=== PATIENT | female | born 1960 | race Caucasian/White ===

== ENCOUNTER → 2019-09-20 | Outpatient (CLI) | payer SELFPAY | PROVIDERS: Family Provider Nurse Practitioner Family; Visit Provider Nurse Practitioner Family | DX: N64.89 Other specified disorders of breast (principal); R92.8 Other abnormal and inconclusive findings on diagnostic imaging of breast | CPT/HCPCS: 76642; 77065 ==

== ENCOUNTER 2019-10-18 10:18 | Outpatient (CLI) | payer MEDICAID, SELFPAY ==
--- NOTE | 2019-10-18 10:26 | US_ITS ---
WS: [id number] Abdomen ultrasound, 10/18/2019 Clinical Data: ABDOMINAL PAIN Comparison: None. Findings: The pancreas shows no cyst, pseudocyst or evidence of pancreatitis. The liver shows no cysts, masses or dilated intrahepatic ducts. The gallbladder has no stones or sludge. The wall measures 0.2 mm with no pericholecystic fluid. The common bile duct is 0.3 mm and no intraductal abnormalities are noted. The right kidney is 8.9 cm. No cysts, masses or hydronephrosis is seen. The left kidney is 8.6 cm. No cysts, masses or hydronephrosis is seen. The abdominal aorta is not dilated and the inferior vena cava has normal flow. No vascular abnormalit ies are seen. The spleen measures 9.1 cm and there are no intrasplenic masses are capsular abnormalities. US/US abdomen complete* [id number] Impression: Negative abdomen ultrasound.
== END 2019-10-18 10:19 | disposition home or self-care (01) ==
LOC: US 10:21
PROVIDERS: Family Provider Nurse Practitioner Family; PCP Nurse Practitioner Family; Visit Provider Nurse Practitioner Family
DX: R10.9 Unspecified abdominal pain (principal)
CPT/HCPCS: 76700

== ENCOUNTER 2019-11-07 12:08 | Outpatient (CLI) | payer MEDICAID, SELFPAY ==
--- NOTE | 2019-11-07 12:12 | US_ITS ---
WS: [id number] ULTRASOUND LEFT BREAST, limited HISTORY: LT BREAST MASS COMPARISON: 09/20/2019 TECHNIQUE: 2-D and Doppler. Previously described mass in the LEFT breast at 1:00 is very benign in appearance. This is very small and may have decreased in size since the prior study. No biopsy will be performed today. This has be en explained to the patient in detail. US/US breast LT limited* [id number] IMPRESSION: BI-RADS: 3-Probably Benign FOLLOW-UP: 6 Month Follow-up Recommend diagnostic LEFT mammogram in 6 months along with ultrasound.
== END 2019-11-07 12:09 | disposition home or self-care (01) ==
LOC: RAD 12:08
PROVIDERS: Family Provider Nurse Practitioner Family; PCP Nurse Practitioner Family; Visit Provider Surgery
DX: N63.21 Unspecified lump in the left breast, upper outer quadrant (principal)
CPT/HCPCS: 19083; 76642

== ENCOUNTER 2020-02-14 07:44 | Outpatient (CLI) | payer MEDICAID, SELFPAY ==
--- NOTE | 2020-02-14 07:50 | USCV_ITS ---
Marybel Jay Age: 59 Gender: F : 1960 Exam Date: 02/14/2020 08:04 Ordering Phys: Valentina Santa Technologist: Ramesh Jenkins Exam Location: [facility] – [place] Indication: DYSPNEA ON EXERTION BP: 125 / 75 HR: 76 Rhythm: Sinus Technical Quality: Fair MEASUREMENTS (Male / Female) Normal Values 2D ECHO LV Diastolic Diameter PLAX 4.0 cm 4.2 - 5.9 / 3.9 - 5.3 cm LV Systolic Diameter PLAX 3.4 cm IVS Diastolic Thickness 1.0 cm 0.6 - 1.0 / 0.6 - 0.9 cm IVS Systolic Thickness 1.4 cm LVPW Diastolic Thickness 0.9 cm 0.6 - 1.0 / 0.6 - 0.9 cm LVPW Systolic Thickness 1.2 cm LVOT Diameter 2.0 cm LV Ejection Fraction 2D Teich 30.3 % LV Ejection Fraction MOD 2C 67.9 % LV Ejection Fraction 2C AL 68.4 % LA Diameter 4.1 cm LA Width 3.8 cm LA Height 3.6 cm RA Width 3.2 cm RA Height 4.3 cm Aorta at Sinotubular Diameter 2.1 cm M-MODE LV Diastolic Diameter MM 4.7 cm 4.2 - 5.9 / 3.9 - 5.3 cm LV Systolic Diameter MM 2.8 cm LV Ejection Fraction MM Teich 69.9 % IVS Diastolic Thickness MM 1.1 cm 0.6 - 1.0 / 0.6 - 0.9 cm IVS Systolic Thickness MM 1.7 cm LVPW Diastolic Thickness MM 1.2 cm 0.6 - 1.0 / 0.6 - 0.9 cm LVPW Systolic Thickness MM 1.7 cm RV Diastolic Diameter MM 1.3 cm Aortic Annulus Diameter 3.2 cm LA Ao Ratio MM 1.3 MV E Point Septal Separation 1.1 cm DOPPLER AV Peak Velocity 106.0 cm/s LVOT Peak Velocity 88.0 cm/s AV Area Cont Eq vti 3.1 cm squared AV Area Cont Eq pk 2.6 cm squared MV Area PHT 5.0 cm squared Mitral E to A Ratio 1.1 MV E' Velocity 9.0 cm/s Mitral E to MV E' Ratio 5.4 Mitral E to LV E' Lateral Ratio 7.1 Mitral E to LV E' Septal Ratio 4.4 TR Peak Velocity 220.0 cm/s TR Peak Gradient 19.4 mmHg TV Peak E Velocity 74.0 cm/s Right Atrial Pressure 3.0 mmHg Pulmonary Artery Systolic Pressu 22.4 mmHg PV Peak Velocity 55.0 cm/s FINDINGS Left Ventricle Normal left ventricular size, systolic function and wall thickness, with no regional wall motion abnormalities. Left ventricular ejection fraction is estimated at 60 %. Normal diastolic function. Right Ventricle Normal right ventricular size and systolic function, RVSP 22.4 mmHg. Right Atrium Normal right atrial size. Right atrial pressure estimated at 3 mm Hg. Left Atrium Mildly increased left atrial size. Mitral Valve Mildly thickened mitral valve. Mild mitral valve regurgitation. Aortic Valve Aortic valve not well visualized. No aortic valve stenosis. No aortic valve regurgitation. Tricuspid Valve Structurally normal tricuspid valve. Trace tricuspid valve regurgitation. Pulmonic Valve Pulmonic valve not well visualized. Pericardium No pericardial effusion. Aorta Normal aorta. CONCLUSIONS 1. Normal left ventricular size, systolic function and wall thickness, with no regional wall motion abnormalities. Left ventricular ejection fraction is estimated at 60 %. Normal diastolic function. 2. Normal right ventricular size and systolic function, RVSP 22.4 mmHg. 3. Mild mitral valve regurgitation. 4. No prior similar studies to compare. Selene Neff MD (Electronically Signed) Final Date: 14 Feb 2020 15:02 S
== END 2020-02-14 07:45 | disposition home or self-care (01) ==
LOC: RAD 07:45
PROVIDERS: PCP Nurse Practitioner Family; Visit Provider Nurse Practitioner Family
DX: R06.09 Other forms of dyspnea (principal); I34.0 Nonrheumatic mitral (valve) insufficiency
CPT/HCPCS: 93306

== ENCOUNTER 2020-05-21 10:26 | Outpatient (CLI) | payer MEDICAID, SELFPAY ==
--- NOTE | 2020-05-21 10:32 | MM_ITS ---
WS: [id number] DIAGNOSTIC LEFT DIGITAL MAMMOGRAM WITH CAD LEFT breast ultrasound, limited HISTORY: Follow-up LEFT breast mass. COMPARISON: 08/26/2019, 09/20/2019, 04/01/2018 and 11/07/2019 Technique: CC, MLO and ML views. Spot compression LEFT MLO and cc. Breast composition: The breasts are heterogeneously dense, which may obscure small masses. No persist ent asymmetry or nodule. No distortion. LEFT breast ultrasound, limited. Again noted is a very hypoechoic posterior ovoid nodule measuring 3 x 1 x 5 mm at 1 o'clock. This is very benign in appearance and may be normal fibroglandular tissue. There is no shadowing or increased vascularity. MM/[place] [id number] IMPRESSION: BI-RADS: 2-Benign FOLLOW UP: 6 Month Follow-up Patient to return to annual screening mammography in August 2020.
== END 2020-05-21 10:27 | disposition home or self-care (01) ==
LOC: RADSHAW 10:27
PROVIDERS: PCP Nurse Practitioner Family; Visit Provider Nurse Practitioner Family
DX: R92.2 Inconclusive mammogram (principal); N63.21 Unspecified lump in the left breast, upper outer quadrant
CPT/HCPCS: 76642; 77065

== ENCOUNTER 2020-06-27 08:46 | Outpatient (CLI) | payer MEDICAID, SELFPAY ==
--- NOTE | 2020-06-27 09:20 | MR_ITS ---
WS: [id number] MRI RIGHT KNEE HISTORY: RIGHT KNEE PAIN COMPARISON: None available. Anterior cruciate ligament: Intact. Posterior cruciate ligament: Intact. Medial collateral ligament: Intact. Posterior lateral corner structures: Intact. Medial menisci: Linear increased signal through the meniscus does not contact an articular surface. Lateral meniscus: Intact. Normal signal, size and shape. Extensor mechanism: Distal quadriceps tendon and patellar tendons are intact. Fluid and soft tissue: Small suprapatellar joint effusion. There is small amount of fluid in the dae on of Garber's cyst. Abnormal signal within the medial head of the gastrocnemius muscle, abnormal signal is just medial to the popliteal artery in the expected location of the tibial nerve. There is mixed signal but predomi nantly increased T2 signal extending over a length of 3.7 cm. Serpiginous area of decreased signal ce ntrally. Osseous and articular structures: Patellofemoral compartment: Mild chondromalacia in the medial patellar facet. Subchondral cystic ansari ges at the patellar eminence. Medial compartment: Negative. Lateral compartment: Negative. MR/MR knee RT wo con* [id number] IMPRESSION: 1. No fracture or meniscal tear. 2. Small suprapatellar joint effusion. 3. Mixed signal in the medial head of the gastrocnemius muscle is most likely partial muscle tear with associated hemorrhage extending over length of 3.7 cm. Tibial nerve involvement is not excluded. 4. Small Garber's cyst.
== END 2020-06-27 08:47 | disposition home or self-care (01) ==
LOC: RADWPI 08:48
PROVIDERS: PCP Nurse Practitioner Family; Visit Provider Nurse Practitioner Family
DX: M25.461 Effusion, right knee (principal); M71.21 Synovial cyst of popliteal space [Baker], right knee
CPT/HCPCS: 73721

== ENCOUNTER 2020-11-02 12:17 | Outpatient (CLI) | payer MEDICAID, SELFPAY ==
--- NOTE | 2020-11-02 12:32 | MM_ITS ---
WS: [id number] BILATERAL DIGITAL DIAGNOSTIC MAMMOGRAM MAMMOGRAPHY WITH CAD CLINICAL INFORMATION: BREAST LUMP LT HISTORY: Six-month follow-up. Left breast lump. COMPARISON: May 21, 2020 TECHNIQUE: Bilateral CC, MLO, and ML views. FINDINGS: The breasts are composed of heterogeneous fibroglandular density, which can limit the detection of sm all underlying mass lesions. Vascular calcifications. Punctate and lucent centered calcifications. Pa lpable marker left breast. No underlying mammographic abnormalities. Ultrasound is pending. Right breast is unchanged and unremarkable. ULTRASOUND BREAST LEFT TECHNIQUE: Ultrasound left breast focused area of concern. CLINICAL INFORMATION: BREAST LUMP LT COMPARISON: None. FINDINGS: Ultrasound left breast at the 1:00 position. Tiny cystic lesion at the 1:00 position 2 cm from the ni pple measuring 4.3 x 1.6 x 4.0 mm. This is unchanged from previous and has a benign appearance. Recom mend return to annual screening mammography. MM/[place] [id number] IMPRESSION: BI-RADS: 2-Benign FOLLOW UP: 1 Year Follow-up Recommend return to annual screening mammography.
== END 2020-11-02 12:18 | disposition home or self-care (01) ==
LOC: RADSHAW 12:18
PROVIDERS: PCP Nurse Practitioner Family; Visit Provider Nurse Practitioner Family
DX: N63.21 Unspecified lump in the left breast, upper outer quadrant (principal)
CPT/HCPCS: 76642; 77066

== ENCOUNTER → 2021-01-15 15:52 | Outpatient (BNVA) | payer MEDICAID, SELFPAY | PROVIDERS: PCP Nurse Practitioner Family; Referring Provider Nurse Practitioner Family; Visit Provider Orthopaedic Surgery | DX: M54.5 Low back pain (principal) | CPT/HCPCS: 72110; 72220 ==

== ENCOUNTER 2021-01-22 16:57 | Outpatient (CLI) | payer MEDICAID, SELFPAY ==
--- NOTE | 2021-01-22 17:30 | MR_ITS ---
WS: [id number] MRI LUMBAR SPINE NONCONTRAST TECHNIQUE: Sagittal T1, T2 and STIR imaging. Axial T1 and T2 imaging. CLINICAL INFORMATION: M48.061 - Spinal stenosis, lumbar region without neurogen... COMPARISON: MRI June 2019 FINDINGS: Mild lumbar curve. No acute compression. No high-grade central canal stenosis. Incidental vertebral h emangiomas are unchanged. L1-L2: Normal. L2-L3: Normal. L3-L4: No significant disc bulging. Mild facet arthropathy. Spinal canal and foramen are patent. L4-L5: Minimal annular bulging. Mild left and no significant right foraminal narrowing. Spinal canal is patent. Moderate facet arthropathy. L5-S1: No significant disc bulging. Spinal canal is patent. Mild left foraminal narrowing. Moderate f acet arthropathy. Visualized pelvic bony structures: Normal. Paravertebral soft tissues: Normal. MR/MR lumbar spine wo con* [id number] IMPRESSION: 1. Mild lumbar curve. No acute compression. No high-grade central canal stenos is. 2. Mild left L4-5 and left L5-S1 foraminal narrowing. 3. Moderate facet arthropathy L4-L5 and L5-S1.
== END 2021-01-22 16:58 | disposition home or self-care (01) ==
LOC: RADSHAW 17:01
PROVIDERS: PCP Nurse Practitioner Family; Visit Provider Orthopaedic Surgery
DX: M48.061 Spinal stenosis, lumbar region without neurogenic claudication (principal); M47.816 Spondylosis without myelopathy or radiculopathy, lumbar region; M47.817 Spondylosis without myelopathy or radiculopathy, lumbosacral region
CPT/HCPCS: 72148

== ENCOUNTER → 2021-03-08 09:16 | Outpatient (BNVA) | payer MEDICAID, SELFPAY | PROVIDERS: PCP Nurse Practitioner Family; Visit Provider Orthopaedic Surgery | DX: Z01.818 Encounter for other preprocedural examination (principal); Z20.822 Contact with and (suspected) exposure to COVID-19 | CPT/HCPCS: 87635 ==

== ENCOUNTER 2021-03-13 11:32 | Day surgery (SDC) | payer MEDICAID, SELFPAY ==
[2021-03-12 15:41] VITALS: BMI 31.4
[2021-03-13] VITALS (12 sets, daily range): BP systolic 132–155; BP diastolic 68–78; PULSE 70–96; RESP 13–20; TEMP 36.1–36.8; O2SAT 94–97
--- NOTE | 2021-03-13 | XR_ITS ---
WS: [id number] Lumbar spine, C-arm fluoroscopy, 03/13/2021 Clinical Data: OR PICS/ DECOMPRESSION Comparison: None. Findings: Dr Gonzales decompressed a lower level of the lumbar spine. XR/XR lumbar spine 1V [id number] Impression: Decompression by Dr. Gonzales.
--- NOTE | 2021-03-13 | SCC_ITS ---
Procedure Done: L4/5 laminectomy with partial facetectomies 11.2 seconds of fluoroscopic guidance, for a cumulative dose of 3.35 mGy, was provided to Dr. Gonzales by the radiology department. C-arm images of the lumbar spine were saved for the patient's permanent record. [facility]PITALNavid
[2021-03-13] MEDS: sodium chloride 0.9% 1,000 ML 30 ML IV (13:00)
--- NOTE | 2021-03-13 13:04 | P.HP_ITS ---
Providers/Chief Complaint Primary Care Provider: Valentina Santa ROUND CUTTER OPERATOR-C Chief Complaint: [id number] lumbar decompression L4/5 History of Present Illness Marybel Jay is a 60 year old female here for evaluation of low back pain. Chief Complaint: low back pain Onset: years Duration: worse over the past two weeks due to fall Characteristics: ache constant , numbness tingling and weakness. Severity: 03/30 Location: low back Radiating symptoms: across hips, at times she has pain in her feet Aggravating factors: walking, sitting to standing position, Alleviating factors: oral pain mediation with minimal relief Neuro deficits: deniesincontinence of bowel/bladder, saddle anesthesia. Prior tx: pain management with Dr. Stephen unsure of type of injection with no relief . physical therapy with no change. Review of Systems Narrative: General ROS: negative for weight changes, fever ENT ROS: negative for nasal congestion, drainage or bleeding, sore throat, dysphagia or ear pain Eyes: PERRL Hematological and Lymphatic ROS: negative for swollen glands or abnormal bleeding Endocrine ROS: negative for polyuria/polydpsia or new changes in weight Respiratory ROS: negative for cough, shortness of breath, or wheezing Cardiovascular ROS: negative for chest pain or dyspnea on exertion Gastrointestinal ROS: negative for reflux, abdominal pain, change in bowel habits, or black or bloody stools Musculoskeletal ROS: negative for back pain, neck pain, or joint pain or swelling except for current problem Neurological ROS: negative for TIA or stoke symptoms Skin: no rashes Medications/Allergies Home Medications Medication Instructions Recorded Confirmed Last Taken Type amitriptyline 75 mg tablet 75 mg PO DAILY 01/15/21 03/13/21 03/11/21 History atorvastatin 40 mg tablet 40 mg PO DAILY 01/15/21 03/13/21 03/11/21 History duloxetine 30 mg capsule,delayed 30 mg PO DAILY 01/15/21 03/13/21 03/11/21 History release epinephrine 0.3 mg/0.3 mL 0.3 mg IM Q10M PRN 01/15/21 03/12/21 Unknown History injection, auto-injector famotidine 20 mg tablet 20 mg PO DAILY 01/15/21 03/13/21 03/11/21 History folic acid 0.8 mg capsule 0.8 mg PO DAILY 01/15/21 03/13/21 03/11/21 History gabapentin 300 mg capsule 300 mg PO TID 01/15/21 03/13/21 03/11/21 History levocetirizine 5 mg tablet 5 mg PO DAILY 01/15/21 03/13/21 03/11/21 History methocarbamol 750 mg tablet 750 mg PO TID 01/15/21 03/13/21 03/11/21 History Allergies Allergy/AdvReac Type Severity Reaction Status Date / Time No Known Allergies Allergy Verified 02/05/21 12:58 Vitals/I&O/Wt Last Vital Signs Temp 98.2 F 03/13/21 12:18 Pulse 70 03/13/21 12:18 Resp 16 03/13/21 12:18 BP 155/74 03/13/21 12:18 Pulse Ox 95 03/13/21 12:18 Weight last 48 hrs Weight 189 lb Physical Exam Narrative: EXAM NARRATIVE: CONSTITUTIONAL: The patient is a normal appearing [] in no apparent distress. GENERAL: Patient in no acute distress. CARDIAC: Regular rate and rhythm. CHEST: Normal inspiratory effort, normal respiratory rate. ABDOMEN: Soft and nontender. SKIN: Clear, warm and intact. NEURO?PSYCH: The patient is alert and oriented to person, place and time. Sensorv /SILT Motor StrengthShoulder abduction C5 5/5Wrist extension C6 5/5Elbow extension C7 5/5Hand Incinerator Attendant C8 5/5Finger abduction T15/5 Radial/ Ulnar/ Median n intact LowerSensory (SILT)Motor StrengthHin flexion L2/3Ant/inner thigh 5/5Hip adduction L2/3 5/5Knee extension L4 Lat thigh, 5/5Toe dorsiflexion L5 5/5Ankle dorsiflexion L5/ A45Xypvfds flexion S1 5/5 DTRBleeps 2+Triceps 2+Brachioradialis 2+Patellar 2+Achilles 2+ MUSCULOSKELETAL: [] UPPEREXTREMITIES: The patient had full active ROM in fingers, wrist, elbow, and shoulder. The patient demonstrated ability to fully flex/extend/abduct/adduct fingers, make ok sign, cross 2nd/3rd digits, extend 1st digit fully.. Radial pulse 2+, CR<2 seconds. LOWER EXTREMITIES: Pt has full, active ROM of toes, ankle, knee, and hip. Dorsalis pedis/posterior tibialis pulses 2+, CR<2 seconds. SPINE: Skin warm, dry, intact. A&P Assessment and plan (1) Lumbar stenosis with neurogenic claudication: L4/5 decompression Status: Acute Attestations Medical Necessity Statement*: failed conservative treatment Coding Level of Care Code Acute Swaging Machine Operator for [facility] Fwd Diagnoses Lumbar stenosis with neurogenic claudication M48.062
--- NOTE | 2021-03-13 13:06 | W.PM.OPSUD ---
Surgery/Procedure H&P Update DATE OF PROCEDURE: March 13, 2021 DATE H&P PERFORMED: 03/13/21 PREOP DIAGNOSIS: lumbar stenosis PLANNED PROCEDURE: Operation Date: 03/13/21 13:30 Proposed Procedures p [id number] lumbar decompression L4/5 m48.062(Not Applicable) - Alex Gonzales DO
--- NOTE | 2021-03-13 13:09 | ANES.PREANE2 ---
Pre-Anesthetic Assessment Pre-Anesthetic Assessment: Height/Weight: Height 1.65 m Weight 85.729 kg Temp Pulse Resp BP Pulse Ox 98.2 F 70 16 155/74 95 03/13/21 12:18 03/13/21 12:18 03/13/21 12:18 03/13/21 12:18 03/13/21 12:18 Preop Diagnosis: lumbar stenosis Proposed Procedure: Operation Date: 03/13/21 13:30 Proposed Procedures p [id number] lumbar decompression L4/5 m48.062(Not Applicable) - Alex Gonzales DO Familial anesthetic complications: none Was Beta Agus taken within 24 hours: N/A Was Clonidine taken within 24 hours: N/A Last intake: Intake Last Liquid Date 03/12/21 Last Liquid Time 18:00 Last Solid Date 03/12/21 Last Solid Time 18:00 Last Intake: 18:00 Social: Social History: No alcohol and No tobacco Exam: Pre-Anes Outpt Exam: alert, oriented x 3, clear to auscultation bilaterally and regular rate & rhythm (murmor noted) Airway: Submandibular: WNL Cervical ROM: WNL MP: 2 Dentition: Full Pulmonary: Pulmonary: None reported CV/HEM: CV/HEM: Murmur (mitral regurg) : : None reported Hepatic: Hepatic: None reported GI: GI: None reported Metabolic: Metabolic: None reported Musc/skel: Musc/skel: Lower Back Pain and OA/DJD Neuropsych: Neuropsych: Depression Anesthetic Plan: ASA status: 2 Anesthesia: General Risk of > 500 ml blood loss (7ml/kg in children): No Meds/Allergies Current Medications: Current Medications Generic Name Dose Route Start Last Admin Trade Name Freq PRN Reason Stop Dose Admin Sodium Chloride 1,000 mls @ 30 ml s/hr 03/13/21 12:00 03/13/21 13:00 Sodium Chloride 0.9% IV 03/14/21 11:59 30 mls/hr .Q24H JYOTHI Administration Data Anesthesia Cardiac Studies: No Data to Display
--- NOTE | 2021-03-13 14:26 | PM.OP ---
Operative Report Date of procedure: March 13, 2021 Pre-op Diagnosis: lumbar stenosis Post-op diagnosis: same Procedure Done: L4/5 laminectomy with partial facetectomies Surgeon: Alex Gonzales Anesthesia: General Estimated blood loss (mL): 5 Condition: stable Disposition: PACU Procedure: L4/5 laminectomy with partial facetectomies Patient is brought to the operative suite. After undergoing anesthesia they are placed in the supine position. All areas of impingement are well padded. Patient is then prepped and draped in the normal sterile fashion. A skin incision is made over the L4/5 level. This is confirmed under c-arm guidance. A series of dilators are passed and the tubular retractor is docked on the L4 lamina. A bovie is used to clear the soft tissue off the lamina and the L 4/5 facet joint. A high speed erlin is then used to perform the laminectomy and take down the medial aspect of the L 4/5 facet joint. A kerrison rongeure was then used to take down the remaining lamina and smooth the edged of the laminectomy up to the point where the ligamentum flavum attaches. Attention was then brought to the medial aspect of the facet joint. The remaining medial aspect of the superior and inferior aspect of the facet joint were taken down with the kerrison from the pedicle of L4 to L 5. The facet joint had significant hypertrophy. Attention was then brought to the Ligamentum Flavum. The ligament was taken down from the lamina of L4 to L5 and out medially to the remaining facet joint. The ligament was thick. The dura was then exposed. The dura was in good repair. The L4 nerve was then traced with a curette out the L4/5 foramen and found to be adequately decompressed. The L5 nerve was traced with a curette around the L5 pedicle. The lateral recess was opened with a kerrison helping to further decompress the L5 nerve. The tubular retractor was then tilted to the contralateral side. The bovie was used to take down the soft tissue on the spinous process. The high speed erlin was used to take down the spinous process and then the contralateral lamina of L4. The kerrison rongeur was used to take down the remaining lamina to the point where the ligamentum flavum attached and the ligamentum flavum was taken down from L4 to L5. The kerrison rongeur was then used to reach across and take down the medial aspect of the contralateral L4/5 facet joint.The currete was used to trace the contralateral L4 nerve out the L4/5 foramen to make sure it was decompressed adequatesly and the L5 was traced around the L5 pedicle. The lateral recess was opened further with the kerrison to ensure the L5 is adequately decompressed. Wound is then irrigated copiously with saline and surgiflo is used to stop any bleeding. The tubular retractor is removed and the wound is closed with vicryl and monocryl suture. Glue is then used to protect the wound. A sterile dressing is then placed. Patient was then placed in the supine position and transferred to the PACU in stable condition.
[2021-03-13] MEDS: fentaNYL 50 mcg/mL INJ 2mL IVP ×2 (14:52→14:57)
--- NOTE | 2021-03-13 15:44 | ANE.PACU2 ---
Inpatient post-anesthesia follow up: Airway intact: Yes Vital signs: Temperature 98.0 F Pulse Rate 72 Respiratory Rate 16 Blood Pressure 142/75 Pulse Oximetry 97 Oxygen Delivery Me thod Room Air Oxygen Flow Rate Fraction of Inspir ed Oxygen Hydration adequate: Yes Nausea and vomiting: No Pain level: 3 Mental status: Baseline
== END 2021-03-13 15:45 | disposition home or self-care (01) ==
PROVIDERS: PCP Nurse Practitioner Family; Visit Provider Orthopaedic Surgery
PROC: (CPT 63005; principal; 2021-03-13 13:20)
DX: M48.061 Spinal stenosis, lumbar region without neurogenic claudication (principal); F32.9 Major depressive disorder, single episode, unspecified
CPT/HCPCS: 63047; 72020; 76000; 96365; J0690; J1100; J2405; J2704; J2710; J3010; J3490; J7030

== ENCOUNTER → 2021-09-24 14:48 | Outpatient (BNVA) | payer MEDICARE, MEDICAID, SELFPAY | PROVIDERS: PCP Nurse Practitioner Family; Visit Provider Internal Medicine | DX: Z20.822 Contact with and (suspected) exposure to COVID-19 (principal); Z01.812 Encounter for preprocedural laboratory examination; R10.11 Right upper quadrant pain | CPT/HCPCS: 87635 ==

== ENCOUNTER 2021-09-30 05:22 | Day surgery (SDC) | payer MEDICARE, MEDICAID, SELFPAY ==
[2021-09-25 13:10] VITALS: BMI 32.5
[2021-09-30 06:11] VITALS: BP 150/76; PULSE 79; RESP 18; TEMP 36.4; O2SAT 100
[2021-09-30] MEDS: sodium chloride 0.9% 1,000 ML 30 ML IV (06:28)
--- NOTE | 2021-09-30 06:53 | ANES.PREANE2 ---
Pre-Anesthetic Assessment Pre-Anesthetic Assessment: Height/Weight: Height 1.65 m Weight 88.904 kg Temp Pulse Resp BP Pulse Ox 97.5 F L 79 18 150/76 100 09/30/21 06:11 09/30/21 06:11 09/30/21 06:11 09/30/21 06:11 09/30/21 06:11 Preop Diagnosis: post prandial pain Proposed Procedure: Operation Date: 09/30/21 07:30 Proposed Procedures p EGD 12141 R10.11(Not Applicable) - Kiko Martinez MD Familial anesthetic complications: none Was Beta Agus taken within 24 hours: N/A Was Clonidine taken within 24 hours: N/A Last intake: Intake Last Liquid Date 09/29/21 Last Liquid Time 19:00 Last Solid Date 09/29/21 Last Solid Time 19:00 Social: Social History: No alcohol and No tobacco Exam: Pre-Anes Outpt Exam: alert, oriented x 3, clear to auscultation bilaterally and regular rate & rhythm Airway: Submandibular: WNL Cervical ROM: WNL MP: 2 Dentition: Full History/ROS: No significant history except as noted Pulmonary: Pulmonary: None reported CV/HEM: CV/HEM: HTN Comments: patient states she was told she has a regurgitating valve on EDILSON but is unable to identify which valve will review records. 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 Anesthetic Plan: ASA status: 3 Anesthesia: MAC Risk of > 500 ml blood loss (7ml/kg in children): No Meds/Allergies Current Medications: Current Medications Generic Name Dose Route Start Last Admin Trade Name Freq PRN Reason Stop Dose Admin Sodium Chloride 1,000 mls @ 30 ml s/hr 09/30/21 06:15 09/30/21 06:28 Sodium Chloride 0.9% IV 30 mls/hr .Q24H JYOTHI Administration PFSH Anesthesia PFSH: Social History Smoking and tobacco status: never smoked Data Anesthesia Cardiac Studies: Echocardiogram Ultrasound 02/14/20
--- NOTE | 2021-09-30 07:03 | P.HP_ITS ---
Same Day Surgery H&P Indication for Procedure/HPI DATE OF PROCEDURE: September 30, 2021 CHIEF COMPLAINT/INDICATIONFOR SURGICAL PROCEDURE: Postprandial abdominal pain PREOP DIAGNOSIS: post prandial pain PLANNED PROCEDRUE: Operation Date: 09/30/21 07:30 Proposed Procedures p EGD 80472 R10.11(Not Applicable) - Kiko Martinez MD Medications/Allergies* Home Medications Medication Instructions Recorded Confirmed Type atorvastatin 40 mg tablet 40 mg PO DAILY 01/15/21 09/30/21 History duloxetine 30 mg capsule,delayed 30 mg PO DAILY 01/15/21 09/30/21 History release epinephrine 0.3 mg/0.3 mL 0.3 mg IM Q10M PRN 01/15/21 09/30/21 History injection, auto-injector famotidine 20 mg tablet 20 mg PO DAILY 01/15/21 09/30/21 History gabapentin 300 mg capsule 300 mg PO TID 01/15/21 09/30/21 History levocetirizine 5 mg tablet 5 mg PO DAILY 01/15/21 09/30/21 History ergocalciferol (vitamin D2) 1,250 1,250 mcg PO .twice a month cap 09/02/21 09/30/21 History mcg (50,000 unit) capsule hydrochlorothiazide 12.5 mg capsule 12.5 mg PO DAILY 09/02/21 09/30/21 History tizanidine 4 mg capsule 4 mg PO Q6H PRN cap 09/02/21 09/30/21 History Allergies/Adverse Reactions Allergy/AdvReac Type Severity Reaction Status Date / Time No Known Allergies Allergy Verified 09/30/21 06:13 Current Medications: Generic Name Dose Route Start Last Admin Trade Name Freq PRN Reason Stop Dose Admin Sodium Chloride 1,000 mls @ 30 mls/hr 09/30/21 06:15 09/30/21 06:28 Sodium Chloride 0.9% IV 30 mls/hr .Q24H JYOTHI Administration Pertinent History/Comorbid Conditions* Social History Smoking and tobacco status: never smoked Pertinent Exam Findings alert, oriented x 3, clear to auscultation bilaterally, regular rate & rhythm, operative site marked and procedure specific exam findings Recommendations Surgery/Procedure today Coding Level of Care Code Acute Anesthesiologist Assistant for Kirill Olvera
[2021-09-30 07:50] VITALS: BP 154/77; PULSE 89; RESP 16; TEMP 36.1; O2SAT 97
[2021-09-30 08:12] VITALS: BP 163/92; PULSE 75; RESP 16; O2SAT 98
--- NOTE | 2021-09-30 14:06 | ANE.PACU2 ---
Inpatient post-anesthesia follow up: Airway intact: Yes Vital signs: Temperature 97.0 F Pulse Rate 75 Respiratory Rate 16 Blood Pressure 163/92 Pulse Oximetry 98 Oxygen Delivery Me thod Room Air Oxygen Flow Rate 3 Fraction of Inspir ed Oxygen Hydration adequate: Yes Nausea and vomiting: No Pain level: 2 Mental status: Baseline
== END 2021-09-30 08:37 | disposition home or self-care (01) ==
PROVIDERS: PCP Nurse Practitioner Family; Visit Provider Internal Medicine
PROC: 0DJ08ZZ Inspection of Upper Intestinal Tract, Via Natural or Artificial Opening Endoscopic (ICD-10-PCS; CPT 43235; principal; 2021-09-30 07:30)
DX: R10.11 Right upper quadrant pain (principal); I10 Essential (primary) hypertension; E78.5 Hyperlipidemia, unspecified; F41.9 Anxiety disorder, unspecified; F32.9 Major depressive disorder, single episode, unspecified
CPT/HCPCS: 43235; J2704; J7030

== ENCOUNTER 2021-10-17 07:05 | Outpatient (CLI) | payer MEDICARE, MEDICAID, SELFPAY ==
--- NOTE | 2021-10-17 07:09 | NM_ITS ---
WS: [id number] NUCLEAR MEDICINE HIDA SCAN CLINICAL INFORMATION: post prandial pain TECHNIQUE: Following intravenous administration of 8.1 mCi of technetium 99m mebrofenin, images of th e abdomen were obtained over the course of 60 minutes. Next, gallbladder ejection fraction was determ ined by obtaining preprandial and one-hour postprandial images of the gallbladder following oral mathieu stion of Ensure. COMPARISON: None. FINDINGS: Normal hepatic uptake at 5 minutes. Gallbladder is visualized by 10 minutes. Normal common bile duct and small bowel activity. No evidence of acute cholecystitis. Normal hepatic excretion. Gallbladder ejection fraction 85% within normal limits. No evidence of chronic cholecystitis. NM/NM hepatobiliary w phar* [id number] IMPRESSION: 1. No evidence of acute or chronic cholecystitis. 2. Gallbladder ejection fraction 85% within normal limits.
== END 2021-10-17 07:06 | disposition home or self-care (01) ==
LOC: RAD 07:08
PROVIDERS: PCP Nurse Practitioner Family; Visit Provider Internal Medicine
DX: R10.11 Right upper quadrant pain (principal)
CPT/HCPCS: 78227; A9537

== ENCOUNTER 2021-12-17 13:53 | Outpatient (CLI) | payer MEDICARE, MEDICAID, SELFPAY ==
--- NOTE | 2021-12-17 14:04 | MM_ITS ---
WS: [id number] BILATERAL 3D TOMOSYNTHESIS DIGITAL DIAGNOSTIC MAMMOGRAPHY WITH CAD CLINICAL INFORMATION: LT BREAST LUMP COMPARISON: November 02, 2020 TECHNIQUE: Bilateral CC, MLO, and ML views. FINDINGS: The breasts are composed of heterogeneous fibroglandular density, which can limit the detection of sm all underlying mass lesions. Vascular calcification. Punctate and lucent centered calcifications. Ult rasound LEFT breast is pending in the area of palpable concern. ULTRASOUND BREAST LEFT TECHNIQUE: Ultrasound left breast focused area of concern. CLINICAL INFORMATION: LT BREAST LUMP FINDINGS: Incidental stable cyst at the 1:00 position 2 cm from the nipple measuring 3.0 x 3.7 mm. This is unch anged. Indeterminate hypoechoic lesions 1:00 position at the areola measuring 4.1 x 3.1 x 3.7 mm and additio nal hypoechoic lesion 1:00 1 cm from the nipple measuring 3.8 x 3.8 x 3.6 mm with a taller than wide appearance. These may be intraductal but are indeterminant. Recommend further evaluation ultrasound-g uided biopsy. MM/[place] [id number] IMPRESSION: BI-RADS: 4-Suspicious Finding-Biopsy Should Be Considered FOLLOW UP: US Guided Biopsy Recommended
== END 2021-12-17 13:54 | disposition home or self-care (01) ==
LOC: RAD 13:55
PROVIDERS: PCP Nurse Practitioner Family; Visit Provider Nurse Practitioner Family
DX: N63.21 Unspecified lump in the left breast, upper outer quadrant (principal)
CPT/HCPCS: 76642; 77062

== ENCOUNTER 2022-01-22 09:07 | Outpatient (CLI) | payer MEDICARE, MEDICAID, SELFPAY ==
--- NOTE | 2022-01-22 09:14 | US_ITS ---
WS: [id number] ULTRASOUND LEFT BREAST HISTORY: 2 NEW LESIONS @ 1:00 AXIS COMPARISON: 12/17/2021, 11/02/2020 TECHNIQUE: 2-D and Doppler. Patient presents for possible biopsy or biopsies of the LEFT breast nodules described on 12/17/2021. O n today's imaging around the LEFT anterior breast there are no suspicious areas. There are a few mild ly prominent ducts. There is mild fibroglandular density. There is no suspicious mass which biopsy sh ould be performed. US/US breast LT limited* [id number] IMPRESSION: BI-RADS: 2-Benign FOLLOW-UP: 1 Year Follow-up
== END 2022-01-22 09:08 | disposition home or self-care (01) ==
LOC: RAD 09:08
PROVIDERS: PCP Nurse Practitioner Family; Visit Provider Surgery
DX: R92.8 Other abnormal and inconclusive findings on diagnostic imaging of breast (principal)
CPT/HCPCS: 76642

== ENCOUNTER 2023-04-21 06:00 | Outpatient (RCR) | payer MEDICARE, MEDICAID, SELFPAY | END 2023-05-21 23:59 | disposition home or self-care (01) | LOC: WPT 06:00 | PROVIDERS: Visit Provider Nurse Practitioner Family | DX: R29.6 Repeated falls (principal) | CPT/HCPCS: 97110; 97161; 97530 ==

== ENCOUNTER 2023-11-26 12:18 | Outpatient (CLI) | payer MEDICARE, MEDICAID, SELFPAY ==
--- NOTE | 2023-11-26 12:41 | MM_ITS ---
WS: [id number] BILATERAL 3D TOMOSYNTHESIS DIGITAL DIAGNOSTIC MAMMOGRAPHY WITH CAD CLINICAL INFORMATION: MASS LT BREAST HISTORY: LEFT breast lesions COMPARISON: 2021 TECHNIQUE: Bilateral CC, MLO, and ML views. FINDINGS: The breasts are composed of heterogeneous fibroglandular density, which can limit the detection of sm all underlying mass lesions. Vascular calcification. A few incidental punctate calcifications. No sig nificant changes compared to 2022. Ultrasound pending of the previously described lesions Small 6 mm ovoid asymmetric density outer LEFT breast is unchanged since 2019. RIGHT breast is unremarkable and unchanged. ULTRASOUND BREAST LEFT TECHNIQUE: Ultrasound left breast focused area of concern. CLINICAL INFORMATION: MASS LT BREAST FINDINGS: Hypoechoic lesion at the 1 o'clock position at the areola appears more distinct today measuring 3 x 4 x 2 mm with associated vascularity. Although not significantly changed in size, recommend further ev aluation with ultrasound-guided biopsy for definitive evaluation. Additional lesion at the 1 o'clock position 1 cm from the nipple measuring 3 x 3 x 2 mm represents a simple cyst. This is benign. IMPRESSION: MM/[place] [id number] BI-RADS: 4-Suspicious Finding-Biopsy Should Be Considered FOLLOW UP: US Guided Biopsy Recommended Recommend ultrasound-guided biopsy of the hypoechoic lesion in the 1 o'clock po sition at the areola.
== END 2023-11-26 12:19 | disposition home or self-care (01) ==
LOC: RAD 12:20
PROVIDERS: PCP Nurse Practitioner Family; Visit Provider Nurse Practitioner Family
DX: N64.9 Disorder of breast, unspecified (principal); N60.02 Solitary cyst of left breast
CPT/HCPCS: 76642; 77062; G0279

== ENCOUNTER 2023-12-30 09:46 | Outpatient (CLI) | payer MEDICARE, SELFPAY ==
--- NOTE | 2023-12-30 09:51 | US_ITS ---
WS: [id number] ULTRASOUND-GUIDED LEFT BREAST BIOPSY CLINICAL INFORMATION: MASS OF LEFT BREAST COMPARISON: 11/26/2023 FINDINGS: The procedure including risks, benefits, and complications were discussed with the patient who agreed to proceed. Timeout was performed. Using sterile technique patient was prepped and draped in the usu al sterile fashion. After 1% lidocaine utilizing real-time ultrasound guidance 5 14-gauge cores were obtained of the LEFT breast lesion at the 1 o'clock position at the areola. Subsequently a titanium c lip was placed in the biopsy cavity. No immediate complications. Pathology demonstrates 1. 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 2. No invasive malignancy identified. 3. Immunohistochemical stains demonstrates papillary neoplasm and atypical ductal hyperplasia. 4. See pathology report for complete detail. IMPRESSION: 5. Uncomplicated ultrasound-guided LEFT breast biopsy. 6. The pathology demonstrates papillary neoplasm with atypical ductal hyperplasia. Recommend breast surgery consultation for excision. 7. Recommend breast surgery consultation for excision. US/[place] [id number] BI-RADS: Post Biopsy FOLLOW UP: Surgical Biopsy Recommended
== END 2023-12-30 09:47 | disposition home or self-care (01) ==
LOC: RAD 09:48
PROVIDERS: PCP Nurse Practitioner Family; Visit Provider Nurse Practitioner Family
DX: D24.2 Benign neoplasm of left breast (principal); N60.92 Unspecified benign mammary dysplasia of left breast
CPT/HCPCS: 19083; 88305; 88342

== ENCOUNTER 2024-01-14 09:29 | Oncology outpatient (recurring) (ONCR) | payer OTHER, SELFPAY ==
[2024-01-14 11:25] LABS: Basophils # 0.1 10^3/uL (0.0-0.1); Basophils % 0.9 %; Eosinophils # 0.1 10^3/uL (0.0-0.8); Eosinophils % 1.4 %; Hematocrit 40.9 % (36-47); Lymphocytes % 31.7 %; Mean Corpuscular HGB Conc 32.3 g/dL (30-55); Mean Corpuscular Hemoglobin 29.3 pg (27-33); Mean Corpuscular Volume 90.7 fl (85-98); Mean Platelet Volume 11.5 fL (7.4-10.4); Monocytes # 0.5 10^3/uL (0.2-0.9); Monocytes % 7.3 %; Neutrophils # 3.69 10^3/uL (1.8-7.7); Neutrophils % 57.8 %; Nucleated Red Blood Cells % 0 %; Platelet Count 288 10^3/cmm (157-399); Red Blood Count 4.51 10^6/uL (3.85-5.65); Red Cell Distribution Width 13.2 % (12.1-15.1)
[2024-01-14 11:45] LABS: Alanine Aminotransferase 26 U/L (0-33); Albumin Level 3.8 g/dL (3.5-5.2); Alkaline Phosphatase 120 U/L (35-105); Anion Gap 11.4 (5-19); Aspartate Amino Transferase 19 U/L (0-32); Blood Urea Nitrogen 19 mg/dL (8-23); Calcium 8.9 mg/dL (8.5-10.5); Carbon Dioxide 28 mmol/L (22-29); Chloride 105 mmol/L (98-107); Creatinine Clr Calc Pharmacy 67.7829; Globulin 2.7 g/dL (1.3-4.6); Glucose 95 mg/dL (65-115); Osmolality Calculated 292 mOsm/kg (285-295); Potassium 4.4 mmol/L (3.5-5.1); Sodium 140 mmol/L (136-145); Total Bilirubin 0.3 mg/dL (0.15-1.2); Total Protein 6.5 g/dL (6.6-8.7)
== END 2024-01-19 23:59 | disposition home or self-care (01) ==
PROVIDERS: PCP Nurse Practitioner Family; Visit Provider Internal Medicine Hematology & Oncology
DX: R10.11 Right upper quadrant pain (principal); M48.062 Spinal stenosis, lumbar region with neurogenic claudication; N60.92 Unspecified benign mammary dysplasia of left breast; Z80.3 Family history of malignant neoplasm of breast; Z78.0 Asymptomatic menopausal state
CPT/HCPCS: 36415; 80053; 85025; 99204

== ENCOUNTER 2024-02-11 09:15 | Oncology outpatient (recurring) (ONCR) | payer MEDICARE, SELFPAY ==
--- NOTE | 2024-01-21 13:30 | XR_ITS ---
WS: [email or web address] SCREENING DEXA SCAN [place] CLINICAL INFORMATION: screening COMPARISON: None. FINDINGS: The L1-L4 bone mineral density measures 1.006 g/cm2. This corresponds to a T score score of -1.4 and Z score of -0.5. Left femoral neck bone mineral density measures 0.830 g/cm2. This corresponds to a T score of -1.4 an d Z score of -0.6. Right femoral neck bone mineral density measures 0.787 g/cm2. This corresponds to a T score -1.7of an d Z score of -1.0. Mean femoral neck bone mineral density measures 0.809 g/cm2. This corresponds to a T score of -1.6 an d Z score of -0.8. XR/XR DEXA axial skeleton* [id number] IMPRESSION: Osteopenia lumbar spine. Osteopenia femoral necks. Patient's FRAX calculated 10 year probability for major osteoporotic fracture i s 27.6% and osteoporotic hip fracture is 5.0%.
[2024-02-11 09:06] LABS: Basophils # 0.1 10^3/uL (0.0-0.1); Basophils % 0.7 %; Eosinophils # 0.1 10^3/uL (0.0-0.8); Hematocrit 44.3 % (36-47); Lymphocytes # 2.3 10^3/uL (0.8-4.8); Lymphocytes % 33.7 %; Mean Corpuscular HGB Conc 32.5 g/dL (30-55); Mean Corpuscular Hemoglobin 29.9 pg (27-33); Mean Corpuscular Volume 92.1 fl (85-98); Mean Platelet Volume 12.1 fL (7.4-10.4); Monocytes # 0.6 10^3/uL (0.2-0.9); Monocytes % 8.2 %; Neutrophils # 3.81 10^3/uL (1.8-7.7); Neutrophils % 55.8 %; Nucleated Red Blood Cells % 0 %; Platelet Count 267 10^3/cmm (157-399); Red Blood Count 4.81 10^6/uL (3.85-5.65); Red Cell Distribution Width 12.9 % (12.1-15.1); White Blood Count 6.83 10^3/uL (3.29-11.43)
[2024-02-11 09:27] LABS: Alanine Aminotransferase 19 U/L (0-33); Albumin Level 4.1 g/dL (3.5-5.2); Alkaline Phosphatase 127 U/L (35-105); Anion Gap 11.3 (5-19); Aspartate Amino Transferase 17 U/L (0-32); Blood Urea Nitrogen 27 mg/dL (8-23); Calcium 8.8 mg/dL (8.5-10.5); Carbon Dioxide 28 mmol/L (22-29); Chloride 101 mmol/L (98-107); Globulin 2.9 g/dL (1.3-4.6); Glucose 109 mg/dL (65-115); Osmolality Calculated 288 mOsm/kg (285-295); Potassium 4.3 mmol/L (3.5-5.1); Sodium 136 mmol/L (136-145); Total Bilirubin 0.3 mg/dL (0.15-1.2)
== END 2024-02-19 23:59 | disposition home or self-care (01) ==
PROVIDERS: Visit Provider Internal Medicine Hematology & Oncology
DX: Z53.9 Procedure and treatment not carried out, unspecified reason; N60.92 Unspecified benign mammary dysplasia of left breast; Z80.3 Family history of malignant neoplasm of breast; M85.80 Other specified disorders of bone density and structure, unspecified site
CPT/HCPCS: 36415; 77080; 80053; 85025; 99213